=== PATIENT | male | born 1960 | race Two or more races ===

== ENCOUNTER 2017-07-19 05:54 | Emergency (ER) | payer BC, OTHER ==
[2017-07-19] MEDS ORDERED: Tetracaine HCl/PF 0.5% 4 ML Bottle EYEBOTH ONE (06:27)
--- NOTE | 2017-07-19 06:27 | EDM.PDOC ---
ED HPI GENERAL MEDICAL PROBLEM - General Chief Complaint: Eye Problems Stated Complaint: bilateral eye irritation Time Seen by Provider: 07/19/17 06:20 Source of Information: Reports: Patient. Denies: Old Records (No [facility] records available) History Limitations: Reports: No Limitations - History of Present Illness INITIAL COMMENTS - FREE TEXT/NARRATIVE: The patient drove himself to the emergency room via private automobile for evaluation of a Workmen's Compensation injury, which apparently occurred at work yesterday. 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 He was wearing his regular glasses with no history of foreign body, other injury, etc. He has not had problems with this in the past with no previous history of allergic rhinitis. He does not wear contacts. Patient does not know when he had his last tetanus shot but this was greater than 10 years ago. No recent history of abdominal pain, heartburn, nausea, diarrhea, melena, gross hematochezia, or any food intolerance, including fatty foods, etc.. The patient also denies any recent fever, cough, wheezing, dyspnea, etc.. Patient did use some Clear Eye eyedrops at about 3 AM this morning with little improvement Onset: Today, Gradual Onset Date: 07/19/17 Onset Time: 00:00 Duration: Constant, Getting Worse Location: Reports: Face (Eyes) Quality: Reports: Ache, Burning Severity: Moderate Improves with: Reports: None Worsens with: Reports: None Associated Symptoms: Reports: Rash (Mild periorbital bilateral). 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 Denies: Allergic Rhinitis, Hard of Hearing Other HEENT History: He wears glasses Cardiovascular History: Reports: High Cholesterol. Denies: Arrhythmia, CAD, Heart Murmur, Hypertension, OR Respiratory History: Reports: None. Denies: Asthma Musculoskeletal History: Reports: None. Denies: Arthritis, Osteoarthritis Endocrine/Metabolic History: Reports: Diabetes, Type II. 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 ED EXAM GENERAL W FULL EYE - Physical Exam Exam: See Below Exam Limited By: No Limitations General Appearance: Alert, WD/WN, No Apparent Distress Eye Exam: Bilateral Eye: Conjunctival Injection (Moderate), EOMI, Normal Fundi, PERRL, Other (Borderline mild bilateral chemosis) Eyelids: Bilateral: Normal Appearance Conjunctiva & Sclera: Bilateral: Injected Cornea Exam: Bilateral: Examined with Flourescein (As above) Extraocular Movements: Bilateral: Intact Pupils: Normal Accommodation Pupillary Size: Bilateral: 6 mm Pupillary Reaction: Bilateral: Brisk Anterior Chamber: Bilateral: Normal Appearance Posterior Chamber: Bilateral: Normal Funduscopic Ears: Normal External Exam, Normal Canal, Hearing Grossly Normal, Normal TMs Nose: Normal Mucosa, No Blood, Clear Rhinorrhea (Mild bilateral) Throat/Mouth: Normal Inspection, Normal Lips, Normal Teeth, Normal Gums, Normal Oropharynx, Normal Voice, No Airway Compromise. No: Perioral Cyanosis Head: Other (Mild bilateral periorbital inflammation). No: Facial Swelling, Facial Tenderness, Sinus Tenderness Neck: Normal Inspection, Supple, Non-Tender, Full Range of Motion. No: Lymphadenopathy (L), Lymphadenopathy (R), Thyromegaly Respiratory/Chest: No Respiratory Distress, Lungs Clear, Normal Breath Sounds, No Accessory Muscle Use, Chest Non-Tender. No: Pleural Rub, Retractions Cardiovascular: Normal Peripheral Pulses, Regular Rate, Rhythm, No Edema, No Gallop, No JVD, No Murmur, No Rub. No: Gallop/S3, Gallop/S4, Friction Rub GI/Abdominal: Normal Bowel Sounds, Soft, Non-Tender, No Organomegaly, No Distention, No Abnormal Bruit, No Mass. No: Guarding (Male) Exam: Deferred Rectal (Males) Exam: Deferred Back Exam: Normal Inspection, Full Range of Motion. No: CVA Tenderness (L), CVA Tenderness (R), Muscle Spasm Extremities: Normal Inspection, Normal Range of Motion, Non-Tender, No Pedal Edema, Normal Capillary Refill. No: Amado's Sign Neurological: Alert, Oriented, CN II-XII Intact, Normal Cognition, Normal Gait, No Motor/Sensory Deficits Psychiatric: Normal Affect, Normal Mood Skin Exam: Erythema (Mild periorbital inflammation bilaterally) Lymphatic: No Adenopathy Course - Vital Signs Last Recorded V/S: Last Vital Signs Temp 36.6 C 07/19/17 06:13 Pulse 96 07/19/17 06:13 Resp 16 07/19/17 06:13 BP 140/88 07/19/17 06:13 Pulse Ox 97 07/19/17 06:13 Vital Signs - 24 hr 07/19/17 06:13 Temperature [ 36.6 C Temporal] Pulse, 96 Peripheral [ Right Pulse Oximetry] Respiratory 16 Rate Blood Pressure 140/88 [Right Upper Arm] O2 Sat by Pulse 97 Oximetry - Orders/Labs/Meds Orders: Active Orders 24 hr Category Date Time Status Vaccines to be Administered [RC] PER UNIT ROUTINE Care 07/19/17 06:29 Active Obtain Past Medical Record [OM.PC] Routine Oth 07/19/17 06:27 Active Labs: None Meds: Medications Discontinued Medications Generic Name Dose Route Start Last Admin Trade Name Tiff PRN Reason Stop Dose Admin Balanced Salt Solution 30 ml 07/19/17 06:28 07/19/17 06:46 Eye Stream Eye Rinse EYELF 07/19/17 06:29 30 ml ONETIME ONE Administration Balanced Salt Solution 30 ml 07/19/17 06:30 07/19/17 06:46 Eye Stream Eye Rinse EYERT 07/19/17 06:31 30 ml ONETIME ONE Administration Diphtheria/Tetanus/Acell Pertussis 0.5 ml 07/19/17 06:29 07/19/17 06:45 Adacel IM 07/19/17 06:30 0.5 ml .ONCE ONE Administration Tetracaine HCl 1 ml 07/19/17 06:27 07/19/17 06:47 Tetracaine 0.5% Steri-Unit Ginette EYEBOTH 07/19/17 06:28 1 ml ASDIRECTED ONE Administration - Radiology Interpretation Free Text/Narrative:: None Departure - Departure Time of Disposition: 07:20 Disposition: Home, Self-Care 01 Condition: Good Clinical Impression: Conjunctivitis Qualifiers: Conjunctivitis type: acute Acute conjunctivitis type: toxic Laterality: bilateral Qualified Code(s): H10.213 - Acute toxic conjunctivitis, bilateral Contact dermatitis Qualifiers: Contact dermatitis type: irritant Contact dermatitis trigger: other trigger Qualified Code(s): L24.89 - Irritant contact dermatitis due to other agents Diabetes mellitus Qualifiers: Diabetes mellitus type: type 2 Diabetes mellitus complication status: without complication Diabetes mellitus joint terminal attack controller insulin use: without joint terminal attack controller use Qualified Code(s): E11.9 - Type 2 diabetes mellitus without complications Hyperlipidemia Qualifiers: Hyperlipidemia type: unspecified Qualified Code(s): E78.5 - Hyperlipidemia, unspecified - Discharge Information Prescriptions: Polymyxin B/Trimethoprim [PolyTrim Ophth Soln] 2 drop EYEBOTH QID #1 bottle Instructions: Chemical Conjunctivitis, [id number] Referrals: PCP,Not In Area [Primary Care Provider] - Forms: ED Department Discharge, ED Return to Work/School Form Additional Instructions: 1. Follow up with your regular provider in 10-14 days as needed, if symptoms persist. Otherwise, follow-up with your regular provider in the next 1-3 days, if no significant improvement in symptoms 2. Tylenol 650 mg by mouth every 4 hours and/or OTC ibuprofen 2-3 tabs by mouth every 6 hours with food as directed./needed. 3. Polytrim eyedrops 2 drops in the affected eye 4 times a day with every 2 hours as needed for at least 5 days AND until 48 hours after complete resolution of symptoms as directed. You may use additional OTC artificial tears as needed as per label instructions. 4. Ice packs as needed/discussed 5. Contact your receiving supervisor concerning today's emergency room visit 6. Work excuse- See Form - Problem List & Annotations (1) Conjunctivitis SNOMED Code(s): 0209073 Code(s): H10.9 - UNSPECIFIED CONJUNCTIVITIS Status: Acute Priority: High Current Visit: Yes Onset Date: 07/18/17 Annotation/Comment:: Overall good results and pain control with tetracaine, etc. treatment as above. Probable irritant lateral conjunctivitis from installing light bulbs this above either from photo/light or chemical exposure with patient swelling a burning odor at time of instillation with light also turning on at that time. Workmen's Compensation and work excuse forms were completed. The patient and this facility will contact appropriate supervisors at the construction site concerning patient's injury. Hospital administration well also verify that OSHA notification requirements are fulfilled. Initiate Polytrim. DTaP given Qualifiers: Conjunctivitis type: acute Acute conjunctivitis type: toxic Laterality: bilateral Qualified Code(s): H10.213 - Acute toxic conjunctivitis, bilateral (2) Contact dermatitis SNOMED Code(s): 09505128 Code(s): L25.9 - UNSPECIFIED CONTACT DERMATITIS, UNSPECIFIED CAUSE Status: Acute Priority: High Current Visit: Yes Onset Date: 07/19/17 Annotation/ Comment:: Ice packs as needed. Exposure as above Qualifiers: Contact dermatitis type: irritant Contact dermatitis trigger: other trigger Qualified Code(s): L24.89 - Irritant contact dermatitis due to other agents; L24.8 - Irritant contact dermatitis due to other agents (3) Diabetes mellitus SNOMED Code(s): 06987585 Code(s): E11.9 - TYPE 2 DIABETES MELLITUS WITHOUT COMPLICATIONS Status: Chronic Priority: Medium Current Visit: Yes Annotation/Comment:: Stable by patient history with last glycosylated hemoglobin of 6.9% Qualifiers: Diabetes mellitus type: type 2 Diabetes mellitus complication status: without complication Diabetes mellitus longterm insulin use: without longterm use Qualified Code(s): E11.9 - Type 2 diabetes mellitus without complications (4) Hyperlipidemia SNOMED Code(s): 56981113 Code(s): E78.5 - HYPERLIPIDEMIA, UNSPECIFIED Status: Chronic Priority: Medium Current Visit: Yes Annotation/Comment:: Stable by history Qualifiers: Hyperlipidemia type: unspecified Qualified Code(s): E78.5 - Hyperlipidemia , unspecified - Problem List Review Problem List Initiated/Reviewed/Updated: Yes - My Orders Last 24 Hours: My Active Orders 07/19/17 06:27 Obtain Past Medical Record [OM.PC] Routine 07/19/17 06:29 Vaccines to be Administered [RC] PER UNIT ROUTINE - Assessment/Plan Last 24 Hours: My Active Orders 07/19/17 06:27 Obtain Past Medical Record [OM.PC] Routine 07/19/17 06:29 Vaccines to be Administered [RC] PER UNIT ROUTINE Assessment:: As above Plan: As above. Extensive precautions were given to the patient, who is in agreement with the treatment plan. See Patient Instructions for further treatment and plan.
[2017-07-19] MEDS ORDERED: Balanced Salt Solution Ophth Irrig 30 ML Bottle EYELF ONE (06:28)
[2017-07-19] MEDS ORDERED: Diphtheria,Pertussis(Acell),Tetanus Vaccine 0.5 ML SDV IM ONE (06:29)
[2017-07-19] MEDS ORDERED: Balanced Salt Solution Ophth Irrig 30 ML Bottle EYERT ONE (06:30)
== END 2017-07-19 07:15 | disposition home or self-care (01) ==
LOC: LL.ED 05:54
DX: L24.89 Irritant contact dermatitis due to other agents (principal); T65.91XA Toxic effect of unspecified substance, accidental (unintentional), initial encounter; H10.213 Acute toxic conjunctivitis, bilateral; E78.00 Pure hypercholesterolemia, unspecified; I25.10 Atherosclerotic heart disease of native coronary artery without angina pectoris; I10 Essential (primary) hypertension; Z23 Encounter for immunization; Y99.0 Civilian activity done for income or pay
CPT/HCPCS: 90471; 90715; 99284; A9270